=== PATIENT | female | born 1940 | race Two or more races ===

== ENCOUNTER 2016-03-08 12:10 | Inpatient (IN) | payer MEDICARE, OTHER ==
[~2016-03-08] VITALS: Ht 160 cm; Wt 80.7 kg
[2016-03-08] MEDS ORDERED: IV NS 0.9% 1,000 ML ONE (12:39)
[2016-03-08] MEDS ORDERED: IV SET PRIMARY PUMP SET 1 EA INFUS.SET MC ONE ×3 (12:39→16:12)
[2016-03-08] MEDS ORDERED: ONDANSETRON HCL/PF 4 MG/2 ML VIAL ONE ×2 (12:39→15:04)
[2016-03-08] MEDS ORDERED: FAMOTIDINE/PF INJ 20 MG/2 ML VIAL IV ONE ×2 (12:39→13:00)
[2016-03-08 13:00] LABS: DIFF TOTAL % 100 %; EOSINOPHILS % (AUTO) 0.1 % (0.0-6.0); HEMATOCRIT 38 % (33-45); HEMOGLOBIN 12.5 g/dL (11.5-14.8); LYMPHOCYTES # (AUTO) 0.8 /CMM (0.8-4.8); LYMPHOCYTES % (AUTO) 8.5 % (20.0-44.0); MEAN CORPUSCULAR HEMOGLOBIN 29 PG (26.0-33.0); MEAN CORPUSCULAR HGB CONC 33 g/dl (31.0-36.0); MEAN CORPUSCULAR VOLUME 87 fL (82-100); MONOCYTES # (AUTO) 0.2 /CMM (0.1-1.30); MONOCYTES % (AUTO) 1.9 % (2.0-12.0); NEUTROPHILS # (AUTO) 8.4 /CMM (1.8-8.9); NEUTROPHILS % (AUTO) 89.5 % (43.0-81.0); PLATELET COUNT (AUTO) 254 /CMM (150-450); RED BLOOD CELL COUNT(AUTO) 4.36 MIL/uL (4.0-5.2); WHITE BLOOD COUNT (AUTO) 9.4 K/uL (4.3-11.0)
[2016-03-08] MEDS ORDERED: IV NS 0.9% 1,000 ML BAG IV ONE (13:00)
[2016-03-08] MEDS ORDERED: ONDANSETRON HCL/PF 4 MG/2 ML VIAL IVP ONE (13:00)
[2016-03-08 13:11] LABS: ANION GAP 12 (5-14); CALCIUM, SERUM 8.5 mg/dL (8.5-10.1); CARBON DIOXIDE 26 mmol/L (21-32); CHLORIDE 104 mmol/L (98-107); CREATININE 0.8 mg/dL (0.6-1.3); GLUCOSE 113 mg/dL (74-106); POTASSIUM 3.9 mmol/L (3.5-5.1); SODIUM SERUM 138 mmol/L (136-145); UREA NITROGEN, BLOOD 10 mg/dL (7-18)
[2016-03-08 13:15] LABS: ALANINE AMINOTRANSFERASE 23 U/L (12-78); ALBUMIN 3.3 g/dL (3.4-5.0); ASPARTATE AMINOTRANSFERASE 24 U/L (15-37); BILIRUBIN,DIRECT 0.1 mg/dL (0.0-0.2); BILIRUBIN,TOTAL 0.7 mg/dL (0.2-1.0); INDIRECT BILIRUBIN 0.6 mg/dL (0.0-1.1); TOTAL PROTEIN, SERUM 6.8 g/dL (6.4-8.2)
[2016-03-08 13:17] LABS: ACETAMINOPHEN 0 ug/ml (10-30); SALICYLATE < 0.2 mg/dL (2.8-20.0)
[2016-03-08 13:18] LABS: TROPONIN I < 0.017 ng/mL (0.00-0.056)
[2016-03-08 13:22] LABS: INR 1.05 (0.87-1.13); PROTHROMBIN TIME 11.4 SECS (9.5-12.7)
[2016-03-08 13:42] LABS: KETONES,URINE 2+ (NEGATIVE); LEUKOCYTE ESTERASE ,URINE 1+ (NEGATIVE); PH,URINE 6.5 (5.0-8.0)
[2016-03-08 13:45] LABS: ADD UA MICROSCOPIC YES
[2016-03-08 13:53] LABS: CANNABINOID, URINE NEGATIVE (NEGATIVE); PHENCYCLIDINE SCREEN,URINE NEGATIVE (NEGATIVE)
[2016-03-08 14:02] LABS: ADD URINE CULTURE YES; RBC,URINE 0-2 /HPF (0-2); WBC,URINE 20-30 /HPF (0-3)
[2016-03-08] MEDS ORDERED: MORPHINE SULFATE INJ 2 MG/ML DISP.SYRIN IV ONE (14:30)
[2016-03-08] MEDS ORDERED: CEFTRIAXONE 1GM BAG (ER ONLY) 50 ML IV ONE ×2 (14:30→14:35)
[2016-03-08] MEDS ORDERED: MORPHINE SULFATE INJ 2 MG/ML DISP.SYRIN ONE (14:35)
[2016-03-08] MEDS ORDERED: RISP0.252 PO (14:44)
[2016-03-08] MEDS ORDERED: ONDANSETRON HCL/PF 4 MG/2 ML VIAL IV ONE (15:00)
[2016-03-08 16:00] VITALS: BP 122/72
[2016-03-08] MEDS ORDERED: MORPHINE SULFATE INJ 2 MG/ML DISP.SYRIN IV PRN (16:00)
[2016-03-08] MEDS ORDERED: ONDANSETRON HCL/PF 4 MG/2 ML VIAL IVP PRN (16:00)
[2016-03-08] MEDS ORDERED: Z GUARD REMEDY 2 OZ OINT TP PRN (16:00)
[2016-03-08] MEDS: IV D5/0.45 NACL 1,000 ML IV PRN (16:19)
[2016-03-08 17:39] VITALS: BP 122/72
[2016-03-08 20:00] VITALS: BP 110/49
[2016-03-09] MEDS: IV D5/0.45 NACL 1,000 ML IV PRN ×2 (03:23→20:55)
[2016-03-09 07:36] LABS: BASOPHILS % (AUTO) 0.3 % (0.0-2.0); DIFF TOTAL % 100 %; EOSINOPHILS # (AUTO) 0.1 /CMM (0.0-0.7); EOSINOPHILS % (AUTO) 1.3 % (0.0-6.0); HEMATOCRIT 35 % (33-45); HEMOGLOBIN 11.8 g/dL (11.5-14.8); LYMPHOCYTES % (AUTO) 13.9 % (20.0-44.0); MEAN CORPUSCULAR HEMOGLOBIN 29 PG (26.0-33.0); MEAN CORPUSCULAR HGB CONC 34 g/dl (31.0-36.0); MEAN CORPUSCULAR VOLUME 87 fL (82-100); MONOCYTES # (AUTO) 0.4 /CMM (0.1-1.30); MONOCYTES % (AUTO) 5.5 % (2.0-12.0); NEUTROPHILS # (AUTO) 5.6 /CMM (1.8-8.9); PLATELET COUNT (AUTO) 246 /CMM (150-450); RED BLOOD CELL COUNT(AUTO) 4.04 MIL/uL (4.0-5.2)
[2016-03-09 07:57] LABS: ALBUMIN 2.9 g/dL (3.4-5.0); BILIRUBIN,TOTAL 0.8 mg/dL (0.2-1.0); CALCIUM, SERUM 7.9 mg/dL (8.5-10.1); CREATININE 0.9 mg/dL (0.6-1.3); POTASSIUM 3.6 mmol/L (3.5-5.1)
[2016-03-09 08:00] VITALS: BP 108/60
[2016-03-09] MEDS ORDERED: DIATR MEGLU/DIATRIZOATE SODIUM 120 ML BOTTLE (GASTROGRAPHIN) ONE (13:10)
[2016-03-09 16:00] VITALS: BP 114/59
[2016-03-09 20:00] VITALS: BP 95/49
[2016-03-10 08:00] VITALS: BP 128/68
[2016-03-10 16:00] VITALS: BP 112/62
[2016-03-10 20:00] VITALS: BP 104/50
[2016-03-11 07:15] LABS: BASOPHILS % (AUTO) 0.4 % (0.0-2.0); DIFF TOTAL % 100 %; EOSINOPHILS # (AUTO) 0.2 /CMM (0.0-0.7); HEMATOCRIT 36 % (33-45); HEMOGLOBIN 12.2 g/dL (11.5-14.8); LYMPHOCYTES # (AUTO) 1.2 /CMM (0.8-4.8); LYMPHOCYTES % (AUTO) 21.1 % (20.0-44.0); MEAN CORPUSCULAR HEMOGLOBIN 29 PG (26.0-33.0); MEAN CORPUSCULAR HGB CONC 34 g/dl (31.0-36.0); MEAN CORPUSCULAR VOLUME 86 fL (82-100); MONOCYTES # (AUTO) 0.4 /CMM (0.1-1.30); MONOCYTES % (AUTO) 7.2 % (2.0-12.0); NEUTROPHILS # (AUTO) 3.9 /CMM (1.8-8.9); NEUTROPHILS % (AUTO) 68.3 % (43.0-81.0); PLATELET COUNT (AUTO) 250 /CMM (150-450); WHITE BLOOD COUNT (AUTO) 5.8 K/uL (4.3-11.0)
[2016-03-11 08:00] VITALS: BP 145/70
[2016-03-11 09:07] LABS: CALCIUM, SERUM 8.3 mg/dL (8.5-10.1); CREATININE 0.9 mg/dL (0.6-1.3); POTASSIUM 3.4 mmol/L (3.5-5.1)
[2016-03-11] MEDS ORDERED: POTASSIUM CHLORIDE 20 MEQ TAB.PRT.SR PO ONE (12:00)
[2016-03-11 16:00] VITALS: BP 130/71
[2016-03-11] MEDS ORDERED: QUETIAPINE FUMARATE 25 MG TABLET PO SCH (22:00)
== END 2016-03-11 17:45 | DRG 389 ==
LOC: ER 12:11 → MED 15:34
PROVIDERS: ADMIT Internal Medicine; ATTEND Internal Medicine
DX: K56.60 Unspecified intestinal obstruction (principal); E44.0 Moderate protein-calorie malnutrition; J98.11 Atelectasis; F29 Unspecified psychosis not due to a substance or known physiological condition; E88.09 Other disorders of plasma-protein metabolism, not elsewhere classified; Z68.31 Body mass index [BMI] 31.0-31.9, adult; K56.7 Ileus, unspecified; I51.7 Cardiomegaly; K57.30 Diverticulosis of large intestine without perforation or abscess without bleeding
CPT/HCPCS: 36415; 71010-TC; 74000-TC; 74250-TC; 80048-TC; 80053-TC; 80061-TC; 80076-TC; 80305; 81000-TC; 82150-TC; 83605-TC; 83690-TC; 83735-TC; 84100-TC; 84484-TC; 85025-TC; 85730-TC; 87040-TC; 87081-TC; 87086-TC; 93307-TC; A4606; G6038-TC; G6039-TC; G6040-TC; J0696; J2270; J2405; J3490; J7030; Q9963; Z7610

== ENCOUNTER 2016-03-31 08:09 | Emergency (ER) | payer MEDICARE, OTHER ==
[~2016-03-31] VITALS: Ht 157.5 cm; Wt 79.4 kg
[~2016-03-31 08:09] MED LIST: RISP0.253 PO
[2016-03-31] MEDS ORDERED: ONDANSETRON HCL/PF 4 MG/2 ML VIAL ONE (08:21)
[2016-03-31] MEDS ORDERED: IV SET PRIMARY PUMP SET 1 EA INFUS.SET MC ONE (08:21)
[2016-03-31] MEDS ORDERED: IV NS 0.9% 1,000 ML ONE (08:21)
[2016-03-31] MEDS ORDERED: ONDANSETRON HCL/PF 4 MG/2 ML VIAL IVP ONE (08:30)
[2016-03-31] MEDS ORDERED: IV NS 0.9% 1,000 ML BAG IV ONE (08:30)
[2016-03-31 08:45] LABS: CREATININE 0.9 mg/dL (0.6-1.3)
[2016-03-31 08:48] LABS: BASOPHILS % (AUTO) 0.2 % (0.0-2.0); DIFF TOTAL % 100 %; EOSINOPHILS % (AUTO) 0.7 % (0.0-6.0); HEMATOCRIT 42 % (33-45); HEMOGLOBIN 13.9 g/dL (11.5-14.8); LYMPHOCYTES # (AUTO) 0.7 /CMM (0.8-4.8); LYMPHOCYTES % (AUTO) 9.7 % (20.0-44.0); MEAN CORPUSCULAR HEMOGLOBIN 28 PG (26.0-33.0); MEAN CORPUSCULAR HGB CONC 33 g/dl (31.0-36.0); MEAN CORPUSCULAR VOLUME 86 fL (82-100); MONOCYTES # (AUTO) 0.3 /CMM (0.1-1.30); MONOCYTES % (AUTO) 3.9 % (2.0-12.0); NEUTROPHILS # (AUTO) 6.2 /CMM (1.8-8.9); NEUTROPHILS % (AUTO) 85.5 % (43.0-81.0); PLATELET COUNT (AUTO) 261 /CMM (150-450); RED BLOOD CELL COUNT(AUTO) 4.89 MIL/uL (4.0-5.2); WHITE BLOOD COUNT (AUTO) 7.2 K/uL (4.3-11.0)
[2016-03-31 08:50] LABS: ALBUMIN 3.7 g/dL (3.4-5.0); BILIRUBIN,DIRECT 0.1 mg/dL (0.0-0.2); BILIRUBIN,TOTAL 1.2 mg/dL (0.2-1.0); INDIRECT BILIRUBIN 1.1 mg/dL (0.0-1.1); TOTAL PROTEIN, SERUM 7.4 g/dL (6.4-8.2)
[2016-03-31 10:18] VITALS: BP 131/89
[2016-03-31 13:34] LABS: KETONES,URINE TRACE (NEGATIVE); LEUKOCYTE ESTERASE ,URINE NEGATIVE (NEGATIVE)
[2016-03-31 13:35] LABS: ADD UA MICROSCOPIC YES
[2016-03-31 13:37] LABS: ADD URINE CULTURE NO; RBC,URINE NONE SEEN /HPF (0-2); WBC,URINE 0-2 /HPF (0-3)
== END 2016-03-31 10:32 | disposition home or self-care (01) ==
LOC: ER 08:12
DX: R11.2 Nausea with vomiting, unspecified (principal); R10.13 Epigastric pain; F32.9 Major depressive disorder, single episode, unspecified; F41.9 Anxiety disorder, unspecified; Z88.2 Allergy status to sulfonamides
CPT/HCPCS: 36415; 80048-TC; 80076-TC; 81000-TC; 83690-TC; 85025-TC; A4606; J2405; J7030; Z7610

== ENCOUNTER 2016-12-15 09:18 | Inpatient (IN) | payer MEDICARE, OTHER ==
[~2016-12-15] VITALS: Ht 157.5 cm; Wt 54.9 kg
--- NOTE | 2016-12-15 09:30 | NUR ---
[id number] ON 515: GD, UNABLE TO CARE FOR SELF (PER [employer]). PATIENT STATING "SHE HASN'T EATEN IN 4 MONTHS." PATIENT ALSO STATING "SHE'S WITH GODS CHILD." BREATHING EVEN AND UNLABORED. NO SOB. VITALS STABLE. SAFTEY AND COMFORT MEASURES IN PLACE. AWAITING MD ORDERS.
--- NOTE | 2016-12-15 09:42 | NUR ---
INSIDE SALES TRAINER AT BEDSIDE FOR BLOOD DRAW.
[2016-12-15 09:49] LABS: BASOPHILS % (AUTO) 0.2 % (0.0-2.0); EOSINOPHILS # (AUTO) 0.1 /CMM (0.0-0.7); EOSINOPHILS % (AUTO) 1.8 % (0.0-6.0); HEMATOCRIT 41 % (33-45); HEMOGLOBIN 13.7 g/dL (11.5-14.8); LYMPHOCYTES # (AUTO) 1.4 /CMM (0.8-4.8); LYMPHOCYTES % (AUTO) 22.5 % (20.0-44.0); MEAN CORPUSCULAR HEMOGLOBIN 29 PG (26.0-33.0); MEAN CORPUSCULAR HGB CONC 33 g/dl (31.0-36.0); MEAN CORPUSCULAR VOLUME 86 fL (82-100); MONOCYTES # (AUTO) 0.4 /CMM (0.1-1.30); MONOCYTES % (AUTO) 6.5 % (2.0-12.0); NEUTROPHILS # (AUTO) 4.2 /CMM (1.8-8.9); PLATELET COUNT (AUTO) 280 /CMM (150-450); RED BLOOD CELL COUNT(AUTO) 4.77 MIL/uL (4.0-5.2); WHITE BLOOD COUNT (AUTO) 6.1 K/uL (4.3-11.0)
[2016-12-15 10:05] LABS: CALCIUM, SERUM 8.5 mg/dL (8.5-10.1); CARBON DIOXIDE 28 mmol/L (21-32); CHLORIDE 104 mmol/L (98-107); CREATININE 0.7 mg/dL (0.6-1.3); GLUCOSE 106 mg/dL (74-106); POTASSIUM 3.6 mmol/L (3.5-5.1); SODIUM SERUM 140 mmol/L (136-145); UREA NITROGEN, BLOOD 15 mg/dL (7-18)
[2016-12-15 10:11] LABS: ALANINE AMINOTRANSFERASE 27 U/L (12-78); ALBUMIN 3.4 g/dL (3.4-5.0); ALCOHOL, BLOOD < 3 mg/dL (0-0); ALKALINE PHOSPHATASE 70 U/L (46-116); ASPARTATE AMINOTRANSFERASE 21 U/L (15-37); BILIRUBIN,DIRECT 0.2 mg/dL (0.0-0.2); BILIRUBIN,TOTAL 1.3 mg/dL (0.2-1.0); TOTAL PROTEIN, SERUM 6.8 g/dL (6.4-8.2)
--- NOTE | 2016-12-15 10:15 | NUR ---
URINE OBTAINED AND SENT TO LAB.
[2016-12-15 10:19] LABS: ACETAMINOPHEN 0 ug/ml (10-30); SALICYLATE < 3.0 mg/dL (2.8-20.0)
[2016-12-15] MEDS ORDERED: OMEP40CA37 PO (10:28)
[2016-12-15 11:03] LABS: APPEARANCE,URINE CLEAR (CLEAR); BILIRUBIN,URINE NEGATIVE (NEGATIVE); BLOOD, URINE NEGATIVE Ery/uL (NEGATIVE); COLOR,URINE YELLOW (YELLOW); KETONES,URINE TRACE (NEGATIVE); LEUKOCYTE ESTERASE ,URINE 1+ (NEGATIVE); NITRITE, URINE NEGATIVE (NEGATIVE); PROTEIN,URINE NEGATIVE (NEGATIVE); UGLUCOSE NEGATIVE (NEGATIVE); UROBILINOGEN,URINE 0.2 EU/dL (0.2)
[2016-12-15 11:10] LABS: BACTERIA,URINE Few /HPF (None Seen); MUCUS,URINE Few /LPF (None Seen); RBC,URINE 0-2 /HPF (0-2)
--- NOTE | 2016-12-15 11:30 | NUR ---
CALLED ART CRYSTAL [employer], HE SAID HE WOULD BE HERE SHORTLY.
--- NOTE | 2016-12-15 13:10 | NUR ---
MICROCOMPUTER SUPPORT SPECIALIST, ART AT BEDSIDE.
--- NOTE | 2016-12-15 13:35 | NUR ---
REPORT GIVEN TO ELIZABETH BARNHART FOR ADMISSION TO [facility].
--- NOTE | 2016-12-15 14:02 | NUR ---
PATIENT TRANSFERRED TO [facility] VIA WHEELCHAIR.
[2016-12-15] MEDS ORDERED: MAG HYDROX/AL HYDROX/SIMETH 30 ML UDC PO PRN (15:00)
[2016-12-15] MEDS ORDERED: MAGNESIUM HYDROXIDE 30 ML UDC PO PRN (15:00)
[2016-12-15] MEDS ORDERED: LORAZEPAM 0.5 MG TABLET PO PRN (15:00)
[2016-12-15] MEDS ORDERED: ACETAMINOPHEN 325 MG TABLET PO PRN (15:00)
[2016-12-15 15:13] VITALS: BP 101/61
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
[2016-12-15 16:00] VITALS: BP 101/61
--- NOTE | 2016-12-15 17:04 | NUR ---
Pt. refused to sign the admission papers and Lizbet Pa contacted at [phone] and notified about the admission
[2016-12-15 20:00] VITALS: BP 116/69
[2016-12-15] MEDS: risperiDONE 1 MG TABLET PO SCH (22:00)
[2016-12-16 08:11] VITALS: BP 143/60
[2016-12-16 08:22] LABS: ALANINE AMINOTRANSFERASE 22 U/L (12-78); ALBUMIN 3.2 g/dL (3.4-5.0); ALKALINE PHOSPHATASE 68 U/L (46-116); ASPARTATE AMINOTRANSFERASE 20 U/L (15-37); BILIRUBIN,TOTAL 1.7 mg/dL (0.2-1.0); CALCIUM, SERUM 8.5 mg/dL (8.5-10.1); CARBON DIOXIDE 26 mmol/L (21-32); CHLORIDE 105 mmol/L (98-107); CREATININE 0.9 mg/dL (0.6-1.3); GLUCOSE 118 mg/dL (74-106); POTASSIUM 3.9 mmol/L (3.5-5.1); SODIUM SERUM 139 mmol/L (136-145); TOTAL PROTEIN, SERUM 6.5 g/dL (6.4-8.2); UREA NITROGEN, BLOOD 16 mg/dL (7-18)
[2016-12-16 10:14] LABS: CHOLESTEROL 153 mg/dL (<200); HDL CHOLESTEROL 45 mg/dL (40-60); LDL 101 mg/dL (0-99); TRIGLYCERIDES 60 mg/dL (30-150)
[2016-12-16] MEDS: PANTOPRAZOLE 40 MG TABLET.DR PO SCH (12:50)
[2016-12-16 16:00] VITALS: BP 132/69
--- NOTE | 2016-12-16 18:33 | NUR ---
dr. hernandez,dr. dacosta in to see pt.
--- NOTE | 2016-12-16 19:29 | NUR ---
[facility]/RN NOTE: PATIENT UP IN HER ROOM AMBULATING. CALM, NO ACUTE DISTRESS NOTED.
[2016-12-16 20:00] VITALS: BP 113/64
[2016-12-16] MEDS: risperiDONE 1 MG TABLET PO SCH (22:46)
[2016-12-17 08:06] VITALS: BP 135/67
[2016-12-17] MEDS: PANTOPRAZOLE 40 MG TABLET.DR PO SCH (08:35)
[2016-12-17 16:00] VITALS: BP 123/81
[2016-12-17 20:18] VITALS: BP 130/75
[2016-12-17] MEDS: risperiDONE 1 MG TABLET PO SCH (21:28)
[2016-12-18 08:34] VITALS: BP 131/84
[2016-12-18] MEDS: PANTOPRAZOLE 40 MG TABLET.DR PO SCH (08:44)
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
[2016-12-18 16:13] VITALS: BP 121/75
[2016-12-18 20:04] VITALS: BP 142/72
[2016-12-18] MEDS: risperiDONE 1 MG TABLET PO SCH (21:22)
[2016-12-19 08:00] VITALS: BP 110/64
[2016-12-19] MEDS: PANTOPRAZOLE 40 MG TABLET.DR PO SCH (09:39)
[2016-12-19 15:46] VITALS: BP 127/73
--- NOTE | 2016-12-19 16:31 | NUR ---
DR. ALLEN IN TO SEE PT.
[2016-12-19 20:12] VITALS: BP 119/79
[2016-12-19] MEDS: risperiDONE 1 MG TABLET PO SCH (21:22)
[2016-12-20 06:49] LABS: BASOPHILS % (AUTO) 0.4 % (0.0-2.0); EOSINOPHILS # (AUTO) 0.2 /CMM (0.0-0.7); HEMATOCRIT 37 % (33-45); HEMOGLOBIN 12.4 g/dL (11.5-14.8); LYMPHOCYTES # (AUTO) 1.2 /CMM (0.8-4.8); LYMPHOCYTES % (AUTO) 26.1 % (20.0-44.0); MEAN CORPUSCULAR HEMOGLOBIN 29 PG (26.0-33.0); MEAN CORPUSCULAR HGB CONC 34 g/dl (31.0-36.0); MEAN CORPUSCULAR VOLUME 86 fL (82-100); MONOCYTES # (AUTO) 0.4 /CMM (0.1-1.30); MONOCYTES % (AUTO) 8.9 % (2.0-12.0); NEUTROPHILS # (AUTO) 2.8 /CMM (1.8-8.9); NEUTROPHILS % (AUTO) 59.6 % (43.0-81.0); PLATELET COUNT (AUTO) 248 /CMM (150-450); RDW COEFFICIENT OF VARIATION 13.9 (11.5-15.0); RED BLOOD CELL COUNT(AUTO) 4.31 MIL/uL (4.0-5.2); WHITE BLOOD COUNT (AUTO) 4.6 K/uL (4.3-11.0)
[2016-12-20 06:56] LABS: ALANINE AMINOTRANSFERASE 22 U/L (12-78); ALKALINE PHOSPHATASE 56 U/L (46-116); ASPARTATE AMINOTRANSFERASE 18 U/L (15-37); BILIRUBIN,DIRECT 0.2 mg/dL (0.0-0.2); BILIRUBIN,TOTAL 0.9 mg/dL (0.2-1.0); CALCIUM, SERUM 8.8 mg/dL (8.5-10.1); CARBON DIOXIDE 28 mmol/L (21-32); CHLORIDE 106 mmol/L (98-107); CREATININE 0.7 mg/dL (0.6-1.3); GLUCOSE 99 mg/dL (74-106); POTASSIUM 3.9 mmol/L (3.5-5.1); SODIUM SERUM 140 mmol/L (136-145); TOTAL PROTEIN, SERUM 6.2 g/dL (6.4-8.2); UREA NITROGEN, BLOOD 17 mg/dL (7-18)
[2016-12-20] MEDS: PANTOPRAZOLE 40 MG TABLET.DR PO SCH (08:00)
[2016-12-20 08:50] VITALS: BP 108/62
[2016-12-20] MEDS ORDERED: risperiDONE 1 MG TABLET PO SCH (09:00)
--- NOTE | 2016-12-20 15:42 | NUR ---
marble worker faxed initial review packet to [address] [place] [address] ( / ) marble worker will follow-up.
[2016-12-20 16:22] VITALS: BP 103/60
[2016-12-20 19:39] VITALS: BP 123/76
[2016-12-20] MEDS: risperiDONE 1 MG TABLET PO SCH (21:40)
[2016-12-21 08:00] VITALS: BP 104/65
[2016-12-21] MEDS: risperiDONE 1 MG TABLET PO SCH ×2 (08:41→20:55)
[2016-12-21] MEDS: PANTOPRAZOLE 40 MG TABLET.DR PO SCH (08:42)
[2016-12-21 16:00] VITALS: BP 114/63
[2016-12-21 19:59] VITALS: BP 145/72
[2016-12-21 20:00] VITALS: BP 145/72
[2016-12-22 08:00] VITALS: BP 116/63
[2016-12-22] MEDS: risperiDONE 1 MG TABLET PO SCH ×2 (08:46→22:18)
[2016-12-22] MEDS: PANTOPRAZOLE 40 MG TABLET.DR PO SCH (08:46)
--- NOTE | 2016-12-22 12:12 | NUR ---
break up worker spoke to patient's daughter Lizbet Knapp ([phone]) who stated that patient is being evicted from her apartment. Patient's daughter, stated that the manager material of the building had gotten a court order for the political analyst to come and change the locks. Per daughter, she will discuss it with the patient about placement. break up worker will follow-up.
[2016-12-22 16:13] VITALS: BP 116/69
[2016-12-22 20:00] VITALS: BP 110/68
[2016-12-22] MEDS: TEMAZEPAM 7.5 MG CAPSULE PO PRN (22:18)
[2016-12-23 08:00] VITALS: BP 102/70
[2016-12-23] MEDS: PANTOPRAZOLE 40 MG TABLET.DR PO SCH (08:38)
[2016-12-23] MEDS: risperiDONE 1 MG TABLET PO SCH ×2 (08:55→21:43)
[2016-12-23 16:00] VITALS: BP 117/68
[2016-12-23 20:00] VITALS: BP 151/62
[2016-12-23] MEDS: TEMAZEPAM 7.5 MG CAPSULE PO PRN (21:43)
[2016-12-24 08:09] VITALS: BP 100/55
[2016-12-24] MEDS: risperiDONE 1 MG TABLET PO SCH ×2 (08:31→21:13)
[2016-12-24] MEDS: PANTOPRAZOLE 40 MG TABLET.DR PO SCH (08:31)
--- NOTE | 2016-12-24 09:13 | NUR ---
[id number]: PT IS CONCERNED ABOUT MEDICATION BEING TOXIC TO LIVER. EDUCATED PT ABOUT LAB RESULTS DONE ON 12/20/16 AST= 18 AND ALT= 22. PT WAS ASSESSED BY DOCTOR BERMUDEZ AND ADDRESSED PT'S CONCERN ABOUT BITTER TASTE.
[2016-12-24 15:41] VITALS: BP 132/71
[2016-12-24 19:57] VITALS: BP 120/58
[2016-12-24 22:00] VITALS: BP 120/65
[2016-12-25 08:21] VITALS: BP 100/62
[2016-12-25] MEDS: PANTOPRAZOLE 40 MG TABLET.DR PO SCH (08:23)
[2016-12-25] MEDS: risperiDONE 1 MG TABLET PO SCH ×2 (08:23→21:03)
[2016-12-25 15:40] VITALS: BP 130/71
[2016-12-25 19:45] VITALS: BP 144/75
[2016-12-26 08:00] VITALS: BP 120/74
[2016-12-26] MEDS: risperiDONE 1 MG TABLET PO SCH (09:04)
[2016-12-26] MEDS: PANTOPRAZOLE 40 MG TABLET.DR PO SCH (09:04)
--- NOTE | 2016-12-26 13:45 | NUR ---
[id number]: PT IS 76 YEARS OLD FEMALE IN DISCHARGE TO [facility] AT [address] [facility] [place]. [address] IN STABLE CONDITION. COMPLAINT WITH MEDICATIONS, COOPERATIVE WITH TREATMENT PLANS. PT DENIES SI/HI AND INSTRUCTED TO GO TO THE CLOSEST ER IF DEVELOPING SI/HI. BEHAVIOR IMPROVED, PSYCHIATRIC TX PLANS MET, MEDICAL TX PLANS DEFERRED CONTINUAL MONITORING. EDUCATED PT AFTER CARE PLAN AND COPY PROVIDED. RETURNED PERSONAL BELONGINGS TO PT. MEDICATIONS RECONCILED WITH DR. ALLEN AND DR. PURDY. REPORT GIVEN TO ESTEFANI FROM [facility] FOR CONTINUITY OF CARE. PT SIGNED DISCHARGE PAPERWORK. SKIN ASSESSMENT DONE. PT LEFT VIA AMBULANCE.
--- NOTE | 2016-12-26 15:59 | NUR ---
Discharge Note: Patient will be discharged to [facility] ([phone]) [address] [place] [address]. Via med response. Patients daughter Lizbet Knapp ([phone]) has been notified. Patient and patient's daughter were agreeable with the discharge plan. Patient's mood and affect were appropriate upon discharge. Patient denied suicidal and homicidal ideations. Patient will follow-up with psychiatrist Dr. Galvin at the facility. Facilitated info to IDT team who are in agreement with discharge arrangement. The multidisciplinary exitcare form was done, printed, signed, and given to the patient.
== END 2016-12-26 13:45 | DRG 885 ==
LOC: ER 09:19 → GPS 13:33
PROVIDERS: ADMIT Psychiatry & Neurology Psychiatry; ATTEND Psychiatry & Neurology Psychiatry
DX: F29 Unspecified psychosis not due to a substance or known physiological condition (principal); F32.9 Major depressive disorder, single episode, unspecified; F41.9 Anxiety disorder, unspecified; K21.9 Gastro-esophageal reflux disease without esophagitis; Z79.899 Other long term (current) drug therapy; Z88.2 Allergy status to sulfonamides; Z73.6 Limitation of activities due to disability; R78.89 Finding of other specified substances, not normally found in blood
CPT/HCPCS: 36415; 76705-TC; 80048-TC; 80053-TC; 80061-TC; 80076-TC; 80305; 81000-TC; 85025-TC; 87081-TC; 87086-TC; A4606; G0480; Z7610